=== PATIENT | female | born 1990 | race Caucasian/White ===

== ENCOUNTER 2019-06-01 00:51 | Inpatient (IN) | payer OTHER ==
[~2019-06-01] VITALS: Ht 157.5 cm; Wt 76.0 kg
--- NOTE | 2019-06-01 05:07 | PR ---
[facility] [address] [place] [address] Signed Progress Notes IP Datetime Report Generated by CPN: 06/01/2019 05:07 PROGRESS NOTES: [id number] Impression: Slow Progression of Labor Procedures: Artificial ROM Plan: Continue present management; Anticipate Vaginal Delivery VITAL SIGNS: [id number] Vital Signs: Reviewed; Within Normal Limits EXAM: [id number] Dilatation: 7.5 Effacement: 85 Station: -3 Uterine Contractions: every 2-4 minutes MEMBRANES: [id number] Membrane Status: Ruptured Amniotic Fluid Color: Bloody ROM Note: AROM with moderate amount slightly bloody fluid Comments: Comfortable wilth Epidural. Fetus A: [id number] FHR Baseline: 140 Variability: Moderate 6-25bpm Accelerations: 15X15 Presentation: Vertex Fetus B: [id number] Signing Physician: Abilio Bolanos MD Copies: ~ *Electronically Signed* 06/01/19 0507 ABILIO BOLANOS MD PATIENT NAME: APRIL DO PROGRESS NOTE DATE OF : [birth year] PHYSICIAN: ABILIO BOLANOS MD RPT #: [id number] REPORT IS CONFIDENTIAL AND NOT TO BE RELEASED WITHOUT AUTHORIZATION
--- NOTE | 2019-06-02 10:54 | PR ---
[facility] [address] [place] [address] Signed PP Progress Notes Datetime Report Generated by CPN: 06/02/2019 10:54 SUBJECTIVE: [id number] Pain: Within normal limits Nausea/Vomiting: Denies Vital Signs: [id number] Vital Signs: Reviewed; Within Normal Limits Notable Details: PP Hgb/Hct = 11.8/34.5 EXAM: [id number] Abdomen/Uterus: Normal Lochia: Normal Extremities: Normal IMPRESSION/PLAN/PROCEDURES: [id number] Impression: Normal progression Plan: Continue present management Procedures: None Progress Notes: Doing well, considering going home later today Signing Physician: Abilio Bolanos MD Copies: ~ *Electronically Signed* 06/02/19 1054 ABILIO BOLANOS MD PATIENT NAME: APRIL DO PROGRESS NOTE DATE OF : 92 PHYSICIAN: ABILIO BOLANOS MD RPT #: [id number] REPORT IS CONFIDENTIAL AND NOT TO BE RELEASED WITHOUT AUTHORIZATION
== END 2019-06-02 16:45 | disposition home or self-care (01) | DRG 807 ==
LOC: FBCO 00:51 → FBC 01:14
PROVIDERS: ADMIT General Practice
PROC: 10E0XZZ Delivery of Products of Conception, External Approach (ICD-10-PCS; principal; 2019-06-01)
PROC: 0UQMXZZ Repair Vulva, External Approach (ICD-10-PCS; 2019-06-01)
PROC: 10907ZC Drainage of Amniotic Fluid, Therapeutic from Products of Conception, Via Natural or Artificial Opening (ICD-10-PCS; 2019-06-01)
PROC: 00HU33Z Insertion of Infusion Device into Spinal Canal, Percutaneous Approach (ICD-10-PCS; 2019-06-01)
PROC: 3E0R3BZ Introduction of Anesthetic Agent into Spinal Canal, Percutaneous Approach (ICD-10-PCS; 2019-06-01)
DX: O71.82 Other specified trauma to perineum and vulva (principal); Z37.0 Single live birth; Z3A.39 39 weeks gestation of pregnancy; O99.52 Diseases of the respiratory system complicating childbirth; J45.990 Exercise induced bronchospasm; Z79.899 Other long term (current) drug therapy; Z33.3 Pregnant state, gestational carrier
CPT/HCPCS: 01960; 36415; 85027; A9270; J2590; J2795; J7121